=== PATIENT | female | born 1955 | race African-American/Black ===

== ENCOUNTER 2019-02-02 15:03 | Inpatient (IN) | payer MEDICAID, OTHER ==
[~2019-02-02] VITALS: Ht 160 cm; Wt 44.9 kg
[~2019-02-02 15:03] MED LIST: HTN MED; METO-396 PO
[2019-02-02] MEDS ORDERED: HYDROCODONE/ACETAMINOPHEN 5/325MG TABLET PO STA (15:38)
[2019-02-02 16:03] LABS: INR 1.1; PROTHROMBIN TIME 10.8 sec (9.1-11.1)
[2019-02-02 16:04] LABS: CHLORIDE 108 mEq/L (98-107)
[2019-02-02] MEDS ORDERED: MORPHINE SULFATE 4 MG/ML CPJ (NOT FOR IM USE) IV ONE (17:15)
[2019-02-02] MEDS ORDERED: ACETAMINOPHEN 325MG TABLET PO ONE (20:15)
[2019-02-02 20:50] LABS: MEAN CORPUSCULAR HEMOGLOBIN 19.6 pg (28.0-32.0); MEAN CORPUSCULAR VOLUME 70.2 fL (81.0-99.0); MEAN PLATELET VOLUME 8.6 fl (7.4-10.4); PLATELET 336 x1000/uL (130-400); RED BLOOD CELL COUNT 1.82 mill/uL (4.2-5.4); RED CELL DISTRIBUTION WIDTH 37.5 % (11.6-14.6)
[2019-02-02 20:52] LABS: HEMATOCRIT. 12.8 % (36.0-48.0); HEMOGLOBIN. 3.6 g/dL (12.0-16.0)
[2019-02-02] MEDS ORDERED: ONDANSETRON HCL 4MG/2ML INJ IV STA (20:53)
[2019-02-02] MEDS ORDERED: MORPHINE SULFATE 4 MG/ML CPJ (NOT FOR IM USE) IV STA (20:53)
[2019-02-02] MEDS ORDERED: SODIUM CHLORIDE 0.9% 1,000 ML IV ONE (21:25)
[2019-02-02 21:51] LABS: NUCLEATED RED BLOOD CELLS 6 /100 WBC; PLATELET ESTIMATE INCREASED
[2019-02-03] VITALS (9 sets, daily range): BP systolic 104–147; BP diastolic 30–56
[2019-02-03 03:33] LABS: HEMOGLOBIN 5.4 g/dL (12.0-16.0)
[2019-02-03] MEDS: HYDROCODONE/ACETAMINOPHEN 5/325MG TABLET PO PRN ×3 (04:49→13:46)
[2019-02-03] MEDS: DOCUSATE SODIUM 100MG CAPSULE PO SCH ×2 (08:58→18:42)
[2019-02-03] MEDS: HYDROCODONE/ACETAMINOPHEN 10/325MG TABLET PO PRN (16:05)
[2019-02-03 17:34] LABS: HEMATOCRIT 21.2 % (36.0-48.0)
[2019-02-03 17:39] LABS: HEMOGLOBIN 6.7 g/dL (12.0-16.0)
[2019-02-03 17:48] LABS: TOTAL IRON BINDING CAPACITY 461 ug/dL (250-450)
[2019-02-03] MEDS ORDERED: TEMAZEPAM 15MG CAPSULE PO PRN (21:45)
[2019-02-03] MEDS: MORPHINE SULFATE 4 MG/ML CPJ (NOT FOR IM USE) IV PRN (22:07)
[2019-02-03 22:41] LABS: HEMATOCRIT 26.5 % (36.0-48.0); HEMOGLOBIN 8.5 g/dL (12.0-16.0)
[2019-02-03 22:54] LABS: TOTAL IRON BINDING CAPACITY 507 ug/dL (250-450)
[2019-02-04] VITALS: BP 150/50
[2019-02-04] MEDS ORDERED: FUROSEMIDE 20MG/2ML VIAL IVP SCH (00:52)
[2019-02-04] MEDS: MORPHINE SULFATE 4 MG/ML CPJ (NOT FOR IM USE) IV PRN ×2 (02:31→06:43)
[2019-02-04 04:00] VITALS: BP 137/55
[2019-02-04 07:10] LABS: HEMATOCRIT. 27.1 % (36.0-48.0); HEMOGLOBIN. 8.5 g/dL (12.0-16.0); MEAN CORPUSCULAR HEMOGLOBIN 24.3 pg (28.0-32.0); MEAN CORPUSCULAR VOLUME 77.7 fL (81.0-99.0); MEAN PLATELET VOLUME 8.6 fl (7.4-10.4); PLATELET 728 x1000/uL (130-400); RED BLOOD CELL COUNT 3.49 mill/uL (4.2-5.4)
[2019-02-04 08:00] VITALS: BP 142/37
[2019-02-04] MEDS: DOCUSATE SODIUM 100MG CAPSULE PO SCH ×2 (08:29→17:00)
[2019-02-04 08:47] LABS: CHLORIDE 109 mEq/L (98-107)
[2019-02-04 12:00] VITALS: BP 144/51
[2019-02-04] MEDS: HYDROCODONE/ACETAMINOPHEN 10/325MG TABLET PO PRN (12:40)
[2019-02-04 13:57] LABS: NUCLEATED RED BLOOD CELLS 2 /100 WBC; PLATELET ESTIMATE INCREASED
[2019-02-04 16:00] VITALS: BP 127/61
[2019-02-04 16:17] VITALS: BP 127/61
== END 2019-02-04 17:28 | disposition home health service (06) | DRG 532 ==
LOC: ER 15:34 → EDBEDREQ 21:27 → 6EST 22:06 → EDBEDREQTM 22:10 → EDBEDREQ 22:10 → ENRESERV 02-03
PROVIDERS: ADMIT Internal Medicine; ATTEND Internal Medicine
PROC: 30233N1 Transfusion of Nonautologous Red Blood Cells into Peripheral Vein, Percutaneous Approach (ICD-10-PCS; principal; 2019-02-02)
DX: N92.0 Excessive and frequent menstruation with regular cycle (principal); E87.8 Other disorders of electrolyte and fluid balance, not elsewhere classified; D64.9 Anemia, unspecified; E78.00 Pure hypercholesterolemia, unspecified; E78.5 Hyperlipidemia, unspecified; M54.30 Sciatica, unspecified side; F17.200 Nicotine dependence, unspecified, uncomplicated; F41.9 Anxiety disorder, unspecified; I10 Essential (primary) hypertension; G89.29 Other chronic pain; J44.9 Chronic obstructive pulmonary disease, unspecified; Z86.73 Personal history of transient ischemic attack (TIA), and cerebral infarction without residual deficits; Z90.710 Acquired absence of both cervix and uterus; Z88.0 Allergy status to penicillin; Z79.899 Other long term (current) drug therapy
CPT/HCPCS: 36415; 71045; 74176; 76856; 83540; 83550; 85014; 85018; 86850; 86900; 86920; 93005; 96361; 96374; 96375; 96376; 97161; 99285; C1893; J1940; J2270; J2405; J7030; J7040; P9016

== ENCOUNTER 2019-06-26 11:42 | Inpatient (IN) | payer MEDICAID ==
[~2019-06-26] VITALS: Ht 165.1 cm; Wt 70.9 kg
[2019-06-26] MEDS ORDERED: SODIUM CHLORIDE 0.9% 1000ML BAG (SEPSIS BOLUS) IV ONE (14:00)
[2019-06-26] MEDS ORDERED: VANCOMYCIN 1 G PREMIX 200 ML IV ONE (14:00)
[2019-06-26] MEDS ORDERED: SODIUM CHLORIDE 0.9% 1,000 ML IV ONE (14:00)
[2019-06-26] MEDS ORDERED: ONDANSETRON HCL 4MG/2ML INJ IV STA (14:00)
[2019-06-26] MEDS ORDERED: MORPHINE SULFATE 4 MG/ML CPJ (NOT FOR IM USE) IV STA (14:00)
[2019-06-26] MEDS ORDERED: LEVOFLOXACIN 750MG PREMIX 150 ML IV ONE (14:00)
[2019-06-26 14:42] LABS: BASOPHILS % 0.4 % (0.0-2.0); EOSINOPHILS % 0.8 % (0.0-5.0); HEMATOCRIT. 36.7 % (36.0-48.0); HEMOGLOBIN. 12.2 g/dL (12.0-16.0); LYMPHOCYTES % 37.6 % (20.0-50.0); MEAN CORPUSCULAR HEMOGLOBIN 29.2 pg (28.0-32.0); MEAN CORPUSCULAR VOLUME 87.5 fL (81.0-99.0); MEAN PLATELET VOLUME 8.7 fl (7.4-10.4); MONOCYTES % 6.6 % (2.0-8.0); NEUTROPHILS % 54.6 % (40.0-76.0); PLATELET 176 x1000/uL (130-400); RED CELL DISTRIBUTION WIDTH 15.8 % (11.6-14.6)
[2019-06-26 14:46] LABS: CHLORIDE 111 mEq/L (98-107)
[2019-06-26 14:50] LABS: D-DIMER < 0.19 mg/L FEU (<0.50); PARTIAL THROMBOPLASTIN TIME 25.7 sec (23.4-31.0); PROTHROMBIN TIME 10.5 sec (9.6-11.0)
[2019-06-26 14:59] LABS: CLARITY URINE CLEAR (CLEAR); COLOR URINE YELLOW (YELLOW); KETONES URINE NEGATIVE (NEGATIVE); LEUKOCYTE ESTERASE URINE NEGATIVE (NEGATIVE); NITRITE URINE NEGATIVE (NEGATIVE); OCCULT BLOOD URINE NEGATIVE (NEGATIVE); PH URINE 5.5 (4.5-8.0); PROTEIN URINE NEGATIVE (NEGATIVE); SPECIFIC GRAVITY URINE 1.012 (1.005-1.030); UROBILINOGEN URINE 0.2 E.U./dL (0.2-1.0)
[2019-06-26] MEDS ORDERED: DIPHENHYDRAMINE 50MG/ML VIAL IV ONE (16:00)
[2019-06-26] MEDS ORDERED: ASPIRIN 325MG EC TABLET PO ONE (16:00)
[2019-06-26] MEDS ORDERED: MORPHINE SULFATE 4 MG/ML CPJ (NOT FOR IM USE) IV ONE (16:15)
[2019-06-26] MEDS ORDERED: IPRATROPIUM/ALBUTEROL 0.5-3(2.5)MG/3ML NEB INH PRN (20:45)
[2019-06-26] MEDS ORDERED: CLONIDINE 0.1MG TABLET PO PRN (20:45)
[2019-06-26] MEDS ORDERED: ONDANSETRON HCL 4MG/2ML INJ IV PRN (20:45)
[2019-06-26] MEDS ORDERED: LORAZEPAM 0.5MG TABLET PO PRN (20:45)
[2019-06-26] MEDS ORDERED: ACETAMINOPHEN 325MG TABLET PO PRN (20:45)
[2019-06-26] MEDS ORDERED: HYDROCODONE/ACETAMINOPHEN 5/325MG TABLET PO PRN (20:45)
[2019-06-26] MEDS ORDERED: DOCUSATE SODIUM 100MG CAPSULE PO PRN (20:45)
[2019-06-26 20:55] VITALS: BP 119/55
[2019-06-26 21:23] LABS: CREATINE KINASE MB FRACTION 1.5 ng/mL (0.5-3.6)
[2019-06-26 21:33] LABS: *AMPHETAMINES SCREEN URINE NEGATIVE (NEGATIVE); *BARBITURATES SCREEN URINE NEGATIVE (NEGATIVE); *BENZODIAZEPINES SCREEN URINE PRESUMTIVE POSITIVE (NEGATIVE); *COCAINE SCREEN URINE PRESUMTIVE POSITIVE (NEGATIVE)
[2019-06-26 21:34] LABS: CANNABINOID URINE SCREEN NEGATIVE (NEGATIVE); METHADONE URINE SCREEN NEGATIVE (NEGATIVE); OPIATES URINE SCREEN PRESUMTIVE POSITIVE (NEGATIVE); PHENCYCLIDINE URINE SCREEN NEGATIVE (NEGATIVE)
[2019-06-26] MEDS ORDERED: B50 PO (21:57)
[2019-06-26] MEDS ORDERED: HYDR-4001 PO (22:00)
[2019-06-26] MEDS: HYDROCODONE/ACETAMINOPHEN 5/325MG TABLET PO PRN (22:21)
[2019-06-26 23:51] VITALS: BP 119/55
[2019-06-27] VITALS: BP 127/57
[2019-06-27] MEDS: HYDROCODONE/ACETAMINOPHEN 5/325MG TABLET PO PRN (02:23)
[2019-06-27 04:00] VITALS: BP 138/71
[2019-06-27 06:28] LABS: BASOPHILS % 0.2 % (0.0-2.0); EOSINOPHILS % 1.3 % (0.0-5.0); HEMATOCRIT. 33.8 % (36.0-48.0); HEMOGLOBIN. 10.8 g/dL (12.0-16.0); LYMPHOCYTES % 37.8 % (20.0-50.0); MEAN CORPUSCULAR HEMOGLOBIN 28.3 pg (28.0-32.0); MEAN CORPUSCULAR VOLUME 88.4 fL (81.0-99.0); MEAN PLATELET VOLUME 8.8 fl (7.4-10.4); MONOCYTES % 7.6 % (2.0-8.0); NEUTROPHILS % 53.1 % (40.0-76.0); PLATELET 169 x1000/uL (130-400); RED BLOOD CELL COUNT 3.83 mill/uL (4.2-5.4); RED CELL DISTRIBUTION WIDTH 15.9 % (11.6-14.6)
[2019-06-27 06:39] LABS: CHLORIDE 113 mEq/L (98-107)
[2019-06-27 08:00] VITALS: BP 131/54
[2019-06-27] MEDS ORDERED: MORPHINE SULFATE 2 MG/ML CPJ (NOT FOR IM USE) IV PRN (08:45)
[2019-06-27] MEDS: DIPHENHYDRAMINE 50MG/ML VIAL IV PRN ×2 (11:05→22:48)
[2019-06-27 12:00] VITALS: BP 132/60
[2019-06-27] MEDS: MORPHINE SULFATE 2 MG/ML CPJ (NOT FOR IM USE) IV PRN ×2 (15:11→20:11)
[2019-06-27 16:00] VITALS: BP 143/77
[2019-06-27 20:46] VITALS: BP 159/81
[2019-06-27] MEDS ORDERED: ZOLPIDEM TARTRATE 5MG TABLET PO PRN (21:00)
[2019-06-28] VITALS: BP 136/68
[2019-06-28] MEDS: MORPHINE SULFATE 2 MG/ML CPJ (NOT FOR IM USE) IV PRN ×3 (00:34→09:35)
[2019-06-28 04:00] VITALS: BP 135/54
[2019-06-28 06:23] LABS: BASOPHILS % 0.4 % (0.0-2.0); EOSINOPHILS % 1.1 % (0.0-5.0); HEMATOCRIT. 33.2 % (36.0-48.0); HEMOGLOBIN. 10.8 g/dL (12.0-16.0); LYMPHOCYTES % 40.5 % (20.0-50.0); MEAN CORPUSCULAR HEMOGLOBIN 28.6 pg (28.0-32.0); MEAN CORPUSCULAR VOLUME 87.7 fL (81.0-99.0); MEAN PLATELET VOLUME 9.2 fl (7.4-10.4); MONOCYTES % 7.9 % (2.0-8.0); NEUTROPHILS % 50.1 % (40.0-76.0); PLATELET 167 x1000/uL (130-400); RED BLOOD CELL COUNT 3.78 mill/uL (4.2-5.4); RED CELL DISTRIBUTION WIDTH 15.4 % (11.6-14.6)
[2019-06-28 07:04] LABS: CHLORIDE 110 mEq/L (98-107)
[2019-06-28 08:00] VITALS: BP 134/78
[2019-06-28] MEDS ORDERED: AMLO5TAB88 MT (11:18)
[2019-06-28] MEDS ORDERED: FURO40TA5 MT (11:18)
[2019-06-28] MEDS ORDERED: MAGNESIUM 2 G PREMIX 50 ML IV NR (11:30)
[2019-06-28 12:42] VITALS: BP 134/68
== END 2019-06-28 14:15 | disposition home or self-care (01) | DRG 203 ==
LOC: ER 11:42 → 8WST 17:54 → EDBEDREQ 17:56 → ENRESERV 19:52
PROVIDERS: ADMIT Internal Medicine; ATTEND Internal Medicine
DX: R07.89 Other chest pain (principal); I42.9 Cardiomyopathy, unspecified; I10 Essential (primary) hypertension; G89.29 Other chronic pain; F17.200 Nicotine dependence, unspecified, uncomplicated; F10.20 Alcohol dependence, uncomplicated; J44.9 Chronic obstructive pulmonary disease, unspecified; M54.30 Sciatica, unspecified side; F14.10 Cocaine abuse, uncomplicated; W57.XXXA Bitten or stung by nonvenomous insect and other nonvenomous arthropods, initial encounter; E78.00 Pure hypercholesterolemia, unspecified; M48.00 Spinal stenosis, site unspecified; Z76.5 Malingerer [conscious simulation]; Z88.0 Allergy status to penicillin; Z90.710 Acquired absence of both cervix and uterus; Z86.73 Personal history of transient ischemic attack (TIA), and cerebral infarction without residual deficits; Y93.89 Activity, other specified; Y92.89 Other specified places as the place of occurrence of the external cause; Y99.8 Other external cause status
CPT/HCPCS: 36415; 71045; 80048; 80305; 81003; 82550; 82553; 83605; 83735; 83880; 84145; 84484; 85379; 93005; 93970; 96374; 99285; J1200; J1956; J2270; J2405; J3370; J3475; J7030

== ENCOUNTER 2019-08-09 02:31 | Emergency (ER) | payer MEDICAID ==
[~2019-08-09] VITALS: Ht 165.1 cm; Wt 64.0 kg
[~2019-08-09 02:31] MED LIST changes: +AMLO5TAB88 MT; +B50 PO; +FURO40TA5 MT; +HYDR-4001 PO; -METO-396 PO
[2019-08-09] MEDS ORDERED: PREDNISONE 20MG TABLET PO STA (03:20)
[2019-08-09] MEDS ORDERED: IPRATROPIUM BROMIDE (0.02%) 0.5MG/2.5ML NEB HHN STA (03:20)
[2019-08-09] MEDS ORDERED: ALBUTEROL (0.083%) 2.5MG/3ML NEB HHN STA (03:20)
[2019-08-09] MEDS ORDERED: TRAMADOL 50MG TABLET PO ONE (03:30)
[2019-08-09] MEDS ORDERED: ACETAMINOPHEN 325MG TABLET PO ONE (05:15)
[2019-08-09 05:30] VITALS: BP 123/55
== END 2019-08-09 05:51 | disposition home or self-care (01) ==
LOC: ER 02:58
DX: M79.605 Pain in left leg (principal); M79.604 Pain in right leg; M54.9 Dorsalgia, unspecified; J44.1 Chronic obstructive pulmonary disease with (acute) exacerbation; D64.9 Anemia, unspecified; M19.90 Unspecified osteoarthritis, unspecified site; E78.00 Pure hypercholesterolemia, unspecified; I10 Essential (primary) hypertension; Z90.710 Acquired absence of both cervix and uterus; Z79.899 Other long term (current) drug therapy; Z88.0 Allergy status to penicillin
CPT/HCPCS: 71045; 93970; 94640; 99284; J7512; J7611; Z7610

== ENCOUNTER 2019-12-30 18:52 | Emergency (ER) | payer MEDICAID | END 2019-12-30 20:17 | disposition left against medical advice (07) | LOC: ER 20:00 | DX: Z53.21 Procedure and treatment not carried out due to patient leaving prior to being seen by health care provider (principal) ==

== ENCOUNTER 2022-07-03 08:44 | Emergency (ER) | payer MEDICARE, MEDICAID ==
[~2022-07-03] VITALS: Ht 160 cm; Wt 51.0 kg
[2022-07-03 08:54] VITALS: BP 94/67
== END 2022-07-03 10:02 | disposition home or self-care (01) ==
LOC: ER 08:44
DX: S00.03XA Contusion of scalp, initial encounter (principal); W18.39XA Other fall on same level, initial encounter; Y93.89 Activity, other specified; Y92.89 Other specified places as the place of occurrence of the external cause; Y99.8 Other external cause status; D64.9 Anemia, unspecified; J44.9 Chronic obstructive pulmonary disease, unspecified; E78.00 Pure hypercholesterolemia, unspecified; I10 Essential (primary) hypertension; Z90.710 Acquired absence of both cervix and uterus; Z88.0 Allergy status to penicillin; Z79.899 Other long term (current) drug therapy
CPT/HCPCS: 99284

== ENCOUNTER 2023-09-22 09:51 | Emergency (ER) | payer MEDICARE, OTHER ==
[~2023-09-22] VITALS: Ht 162.6 cm; Wt 44.0 kg
[2023-09-22 10:03] VITALS: BP 96/57; RESP 16; TEMP 97.9; O2SAT 100
[2023-09-22 10:29] VITALS: PULSE 83
[2023-09-22 11:09] LABS: BASOPHILS % 0.6 % (0.0-2.0); DIFFERENTIAL COMMENT 0; EOSINOPHILS % 0.4 % (0.0-5.0); HEMATOCRIT. 30.4 % (36.0-48.0); HEMOGLOBIN. 9.2 g/dL (12.0-16.0); LYMPHOCYTES % 21.2 % (20.0-50.0); MEAN CORPUSCULAR HGB CONC 30.2 g/dL (31.0-37.0); MEAN CORPUSCULAR VOLUME 79.7 fL (81.0-99.0); MEAN PLATELET VOLUME 8.6 fl (7.4-10.4); MONOCYTES % 4.8 % (2.0-8.0); PLATELET 327 x1000/uL (130-400); RED BLOOD CELL COUNT 3.81 mill/uL (4.2-5.4); RED CELL DISTRIBUTION WIDTH 21.5 % (11.6-14.6); WHITE BLOOD COUNT 7.7 x1000/uL (4.5-11.0)
[2023-09-22 12:19] LABS: ALANINE AMINOTRANSFERASE < 7 IU/L (10-49); ALBUMIN 3.9 g/dL (3.2-4.8); ASPARTATE AMINOTRANSFERASE 16 IU/L (<34); BILIRUBIN TOTAL 0.2 mg/dL (0.1-1.0); CALCIUM 10.2 mg/dL (8.7-10.4); CARBON DIOXIDE 21 mEq/L (21-32); CHLORIDE 110 mEq/L (98-107); CREATININE 0.6 mg/dL (0.6-1.0); GLUCOSE 94 mg/dL (70-105); POTASSIUM 3.3 mEq/L (3.5-5.1); PROTEIN TOTAL 7.2 g/dL (6.0-8.3); SODIUM 142 mEq/L (136-145); UREA NITROGEN BLOOD 10 mg/dL (9-23)
== END 2023-09-22 19:25 | disposition left against medical advice (07) ==
LOC: ER 11:10
DX: M25.561 Pain in right knee (principal); Z53.21 Procedure and treatment not carried out due to patient leaving prior to being seen by health care provider
CPT/HCPCS: 36415; 80053; 85025; 93005; 99281; 99284

== ENCOUNTER 2023-10-24 15:43 | Emergency (ER) | payer MEDICARE, OTHER ==
[~2023-10-24] VITALS: Ht 165.1 cm; Wt 61.0 kg
[2023-10-24 15:48] VITALS: BP 127/59; PULSE 95; RESP 18; TEMP 98.3; O2SAT 100
[2023-10-24 16:27] LABS: BASOPHILS % 0.5 % (0.0-2.0); EOSINOPHILS % 0.8 % (0.0-5.0); HEMOGLOBIN. 9.8 g/dL (12.0-16.0); LYMPHOCYTES % 25.9 % (20.0-50.0); MEAN CORPUSCULAR HGB CONC 30.5 g/dL (31.0-37.0); MEAN CORPUSCULAR VOLUME 78.8 fL (81.0-99.0); MEAN PLATELET VOLUME 8.4 fl (7.4-10.4); MONOCYTES % 9.3 % (2.0-8.0); NEUTROPHILS % 63.5 % (40.0-76.0); PLATELET 324 x1000/uL (130-400); RED BLOOD CELL COUNT 4.06 mill/uL (4.2-5.4); WHITE BLOOD COUNT 8.9 x1000/uL (4.5-11.0)
[2023-10-24 16:29] LABS: ADD RBC MORPHOLOGY YES; DIFFERENTIAL COMMENT 1
[2023-10-24 16:46] LABS: ALANINE AMINOTRANSFERASE < 7 IU/L (10-49); ALBUMIN 3.9 g/dL (3.2-4.8); ASPARTATE AMINOTRANSFERASE 14 IU/L (<34); BILIRUBIN TOTAL 0.2 mg/dL (0.1-1.0); CALCIUM 9.8 mg/dL (8.7-10.4); CARBON DIOXIDE 27 mEq/L (21-32); CHLORIDE 109 mEq/L (98-107); CREATININE 0.7 mg/dL (0.6-1.0); GLUCOSE 96 mg/dL (70-105); POTASSIUM 3.9 mEq/L (3.5-5.1); PROTEIN TOTAL 7.8 g/dL (6.0-8.3); SODIUM 143 mEq/L (136-145); UREA NITROGEN BLOOD 14 mg/dL (9-23)
[2023-10-24 16:53] LABS: ANISOCYTOSIS 2+; HYPOCHROMASIA 1+; MICROCYTOSIS 1+; PLATELET ESTIMATE NORMAL
[2023-10-24 20:51] LABS: CLARITY URINE TURBID (CLEAR); COLOR URINE YELLOW (YELLOW); GLUCOSE URINE NEGATIVE (NEGATIVE); KETONES URINE NEGATIVE (NEGATIVE); LEUKOCYTE ESTERASE URINE 3+ (NEGATIVE); NITRITE URINE NEGATIVE (NEGATIVE); OCCULT BLOOD URINE 2+ (NEGATIVE); PROTEIN URINE 1+ (NEGATIVE); SPECIFIC GRAVITY URINE 1.014 (1.005-1.030); UROBILINOGEN URINE 0.2 E.U./dL (0.2-1.0)
[2023-10-24 21:26] LABS: BACTERIA URINE 3+; SQUAMOUS EPITHELIAL CELL URINE 1+ /lpf (RARE/1+)
[2023-10-24 21:27] LABS: WBC URINE TNTC /hpf (0-2)
[2023-10-24] MEDS ORDERED: NITR-87 MT (21:32)
[2023-10-25] MEDS ORDERED: LEVO750T68 MT (23:42)
[2023-10-25] MEDS ORDERED: TOPUD MT (23:42)
== END 2023-10-24 22:46 | disposition home or self-care (01) ==
LOC: ER 15:43
DX: N39.0 Urinary tract infection, site not specified (principal); M19.90 Unspecified osteoarthritis, unspecified site; J44.9 Chronic obstructive pulmonary disease, unspecified; E78.00 Pure hypercholesterolemia, unspecified; I10 Essential (primary) hypertension; Z90.710 Acquired absence of both cervix and uterus; Z88.0 Allergy status to penicillin; Z98.890 Other specified postprocedural states
CPT/HCPCS: 36415; 80053; 81003; 85025; 99283

== ENCOUNTER 2023-10-25 17:55 | Emergency (ER) | payer MEDICARE, OTHER ==
[~2023-10-25] VITALS: Ht 165.1 cm; Wt 63.6 kg
[~2023-10-25 17:55] MED LIST changes: +NITR-87 MT
[2023-10-25 18:06] VITALS: TEMP 98.6; O2SAT 100
[2023-10-25 18:59] LABS: CLARITY URINE TURBID (CLEAR); COLOR URINE YELLOW (YELLOW); GLUCOSE URINE NEGATIVE (NEGATIVE); KETONES URINE NEGATIVE (NEGATIVE); LEUKOCYTE ESTERASE URINE 3+ (NEGATIVE); NITRITE URINE NEGATIVE (NEGATIVE); OCCULT BLOOD URINE 2+ (NEGATIVE); PROTEIN URINE 1+ (NEGATIVE); SPECIFIC GRAVITY URINE 1.007 (1.005-1.030); UROBILINOGEN URINE 0.2 E.U./dL (0.2-1.0)
[2023-10-25 19:13] LABS: RBC URINE 0-2 /hpf (0-2); SQUAMOUS EPITHELIAL CELL URINE 1+ /lpf (RARE/1+); WBC URINE 15-25 /hpf (0-2)
[2023-10-25 19:14] LABS: BACTERIA URINE 2+
[2023-10-25 19:28] LABS: BASOPHILS % 0.4 % (0.0-2.0); EOSINOPHILS % 0.3 % (0.0-5.0); LYMPHOCYTES % 29.3 % (20.0-50.0); MEAN CORPUSCULAR HEMOGLOBIN 24.2 pg (28.0-32.0); MEAN CORPUSCULAR HGB CONC 30.2 g/dL (31.0-37.0); MEAN CORPUSCULAR VOLUME 80.1 fL (81.0-99.0); MEAN PLATELET VOLUME 7.8 fl (7.4-10.4); MONOCYTES % 7.9 % (2.0-8.0); NEUTROPHILS % 62.1 % (40.0-76.0); PLATELET 316 x1000/uL (130-400); RED BLOOD CELL COUNT 4.11 mill/uL (4.2-5.4); RED CELL DISTRIBUTION WIDTH 22.2 % (11.6-14.6); WHITE BLOOD COUNT 9.6 x1000/uL (4.5-11.0)
[2023-10-25 19:29] LABS: DIFFERENTIAL COMMENT 1
[2023-10-25 19:45] LABS: ALANINE AMINOTRANSFERASE < 7 IU/L (10-49); ASPARTATE AMINOTRANSFERASE 15 IU/L (<34); BILIRUBIN TOTAL 0.2 mg/dL (0.1-1.0); CALCIUM 9.9 mg/dL (8.7-10.4); CARBON DIOXIDE 25 mEq/L (21-32); CHLORIDE 109 mEq/L (98-107); CREATININE 0.7 mg/dL (0.6-1.0); GLUCOSE 87 mg/dL (70-105); POTASSIUM 3.7 mEq/L (3.5-5.1); PROTEIN TOTAL 7.9 g/dL (6.0-8.3); SODIUM 142 mEq/L (136-145); UREA NITROGEN BLOOD 15 mg/dL (9-23)
[2023-10-25] MEDS ORDERED: ONDANSETRON HCL 4MG/2ML INJ IV STA (20:40)
[2023-10-25] MEDS ORDERED: MORPHINE SULFATE 4 MG/ML CPJ (NOT FOR IM USE) IV STA (20:40)
[2023-10-25] MEDS ORDERED: LEVOFLOXACIN 750MG PREMIX 150 ML IV ONE (20:45)
[2023-10-25] MEDS ORDERED: SODIUM CHLORIDE 0.9% 1,000 ML IV ONE (20:45)
[2023-10-25] MEDS ORDERED: TOPUD MT (23:42)
[2023-10-25] MEDS ORDERED: LEVO750T68 MT (23:42)
[2023-10-26 00:25] VITALS: BP 140/75; PULSE 80; RESP 18
== END 2023-10-26 00:25 | disposition home or self-care (01) ==
LOC: ER 17:55
DX: N39.0 Urinary tract infection, site not specified (principal); I10 Essential (primary) hypertension; E78.00 Pure hypercholesterolemia, unspecified; J44.1 Chronic obstructive pulmonary disease with (acute) exacerbation; Z98.890 Other specified postprocedural states
CPT/HCPCS: 80053; 81003; 83690; 85025; 87086; 36415; 71045; 74176; 93005; 96365; 96366; 96375; 99285; J2405; J2270; J1956; J7030; Z7610 ×3